=== PATIENT | female | born 1940 | race Caucasian/White ===

== ENCOUNTER 2019-09-07 23:42 | Inpatient (IN) | payer OTHER, SELFPAY ==
[~2019-09-07] VITALS: Ht 165.1 cm; Wt 96.2 kg
[~2019-09-07 23:42] MED LIST: CALC1TAB51 PO; COR6.25 PO; FURO40TA5 PO; LEVO100T PO; MULT PO; POTA20TA83 PO; VITA400C68 PO; WARF3TAB59 PO
[2019-09-07 23:49] VITALS: BP_SYST 114
[2019-09-08 01:03] LABS: EOSINOPHILS % (AUTO) 0.1 % (0.0-4.0); LYMPHOCYTES # (AUTO) 0.3 K/uL (1.0-5.5); NEUTROPHILS # (AUTO) 6.5 K/uL (1.8-7.7); WHITE BLOOD COUNT (AUTO) 7.4 K/uL (4.8-10.8)
[2019-09-08 01:10] LABS: BASOPHILS % (AUTO) 0.3 % (0.0-2.0); HEMOGLOBIN 7.1 g/dL (12.0-16.0); LYMPHOCYTES % (AUTO) 4.1 % (20.5-51.5); MEAN CORPUSCULAR HEMOGLOBIN 22 pg (27-31); MEAN CORPUSCULAR HGB CONC 31 % (32-36); MEAN CORPUSCULAR VOLUME 71 fL (79.0-98.0); MONOCYTES # (AUTO) 0.5 K/uL (0.0-1.0); MONOCYTES % (AUTO) 7.1 % (1.7-9.3); NEUTROPHILS % (AUTO) 88.4 % (40.0-70.0); PLATELET COUNT (AUTO) 256 K/uL (130-430); RED BLOOD CELL COUNT(AUTO) 3.27 MIL/uL (4.2-6.2); RED CELL DISTRIBUTION WIDTH 21.2 % (9.0-15.0)
[2019-09-08 01:21] LABS: ANION GAP 8 (5-15); CALCIUM 7.1 mg/dL (8.4-11.0); CHLORIDE 100 mmol/L (98-107); CREATININE 1.73 mg/dL (0.55-1.30); GLUCOSE 129 mg/dL (70-99); POTASSIUM 4.2 mmol/L (3.5-5.1); SODIUM SERUM 135 mmol/L (136-145); UREA NITROGEN, BLOOD 21 mg/dL (8-21)
[2019-09-08 01:22] LABS: INR 1.2 (0.8-1.2); PROTHROMBIN TIME 12.4 SECS (9.5-12.5)
[2019-09-08 01:34] LABS: ALANINE AMINOTRANSFERASE 23 U/L (12-78); ALBUMIN 2.5 g/dL (3.4-4.8); ASPARTATE AMINOTRANSFERASE 23 U/L (10-37); TOTAL BILIRUBIN 0.9 mg/dL (0.0-1.0)
[2019-09-08] MEDS ORDERED: DILT120C89 PO (02:13)
[2019-09-08] MEDS ORDERED: AMI200 PO (02:13)
[2019-09-08] MEDS ORDERED: APIX5TAB PO (02:13)
[2019-09-08] MEDS ORDERED: LORA10TA7 PO (02:13)
[2019-09-08] MEDS ORDERED: ACETAMINOPHEN 325 MG TABLET PO PRN (02:15)
[2019-09-08] MEDS ORDERED: ONDANSETRON HCL 4 MG/2 ML VIAL IVP PRN (02:15)
[2019-09-08] MEDS ORDERED: MORPHINE 2 MG/ML INJ. SYRINGE IVP PRN (02:15)
[2019-09-08] MEDS ORDERED: HYDROcodone/ACETAMIN 5-325 MG TAB (NORCO/ VICODIN) PO PRN (02:15)
[2019-09-08 03:11] VITALS: BP_SYST 122
[2019-09-08] MEDS: PANTOPRAZOLE SODIUM 40 MG/VIAL (PROTONIX) IVP SCH ×3 (03:47→21:29)
[2019-09-08 04:20] VITALS: BP_SYST 122
[2019-09-08] MEDS ORDERED: DIPHENHYDRAMINE INJ 50 MG/ML VIAL IVP PRN (05:00)
[2019-09-08 06:25] LABS: BASOPHILS % (AUTO) 0.3 % (0.0-2.0); EOSINOPHILS % (AUTO) 0.1 % (0.0-4.0); HEMATOCRIT 22.9 % (36-48); LYMPHOCYTES # (AUTO) 0.6 K/uL (1.0-5.5); LYMPHOCYTES % (AUTO) 7.8 % (20.5-51.5); MEAN CORPUSCULAR HEMOGLOBIN 21 pg (27-31); MEAN CORPUSCULAR HGB CONC 30 % (32-36); MEAN CORPUSCULAR VOLUME 71 fL (79.0-98.0); MONOCYTES # (AUTO) 0.6 K/uL (0.0-1.0); MONOCYTES % (AUTO) 8.9 % (1.7-9.3); NEUTROPHILS # (AUTO) 5.9 K/uL (1.8-7.7); NEUTROPHILS % (AUTO) 82.9 % (40.0-70.0); PLATELET COUNT (AUTO) 240 K/uL (130-430); RED BLOOD CELL COUNT(AUTO) 3.25 MIL/uL (4.2-6.2); RED CELL DISTRIBUTION WIDTH 21.3 % (9.0-15.0); WHITE BLOOD COUNT (AUTO) 7.1 K/uL (4.8-10.8)
[2019-09-08 06:50] LABS: HEMOGLOBIN 6.9 g/dL (12.0-16.0)
[2019-09-08 07:30] LABS: ALANINE AMINOTRANSFERASE 20 U/L (12-78); ALBUMIN 2.2 g/dL (3.4-4.8); ANION GAP 6 (5-15); ASPARTATE AMINOTRANSFERASE 24 U/L (10-37); CALCIUM 7.4 mg/dL (8.4-11.0); CHLORIDE 100 mmol/L (98-107); CREATININE 1.51 mg/dL (0.55-1.30); GLUCOSE 108 mg/dL (70-99); POTASSIUM 4.4 mmol/L (3.5-5.1); SODIUM SERUM 134 mmol/L (136-145); TOTAL BILIRUBIN 0.9 mg/dL (0.0-1.0); UREA NITROGEN, BLOOD 21 mg/dL (8-21)
[2019-09-08 08:01] VITALS: BP_SYST 128
[2019-09-08 08:27] LABS: CHOLESTEROL 81 mg/dL (<200); HDL CHOLESTEROL 36 mg/dL (>55); LDL CHOLESTEROL 44 mg/dL (<100); TRIGLYCERIDES 59 mg/dL (30-150)
[2019-09-08] MEDS ORDERED: AMIODARONE HCL 200 MG TABLET PO ONE (10:45)
[2019-09-08] MEDS ORDERED: DILTIAZEM HCL 120 MG CAP.SR.24H PO ONE (10:45)
[2019-09-08 12:13] VITALS: BP_SYST 106
[2019-09-08] MEDS: ALBUTEROL SULFATE 0.083% 2.5 MG/3 ML VIAL.NEB INH PRN (16:05)
[2019-09-08 16:20] VITALS: BP_SYST 110
[2019-09-08] MEDS ORDERED: BISACODYL 5 MG TABLET.DR (DULCOLAX) PO ONE (17:00)
[2019-09-08 17:39] LABS: BILIRUBIN,URINE 1+ (NEGATIVE); BLOOD, URINE NEGATIVE (NEGATIVE); CLARITY/URINE CLOUDY (CLEAR); COLOR,URINE YELLOW (YELLOW); GLUCOSE,URINE NEGATIVE (NEGATIVE); KETONES,URINE NEGATIVE (NEGATIVE); LEUKOCYTE ESTERASE ,URINE TRACE (NEGATIVE); NITRITE, URINE POSITIVE (NEGATIVE); PROTEIN URINE NEGATIVE (NEGATIVE)
[2019-09-08] MEDS ORDERED: GOLYTELY / COLYTE SOLUTION 4 LITERS PO ONE (18:00)
[2019-09-08 18:05] LABS: RBC,URINE NONE SEEN /HPF (0-3)
[2019-09-08 18:06] LABS: BACTERIA,URINE MANY /HPF (None Seen)
[2019-09-08 19:40] VITALS: BP_SYST 106
[2019-09-09 00:38] VITALS: BP_SYST 130
[2019-09-09 06:34] LABS: ALANINE AMINOTRANSFERASE 19 U/L (12-78); ALBUMIN 2.2 g/dL (3.4-4.8); ANION GAP 8 (5-15); ASPARTATE AMINOTRANSFERASE 28 U/L (10-37); CALCIUM 7.5 mg/dL (8.4-11.0); CHLORIDE 96 mmol/L (98-107); CREATININE 1.22 mg/dL (0.55-1.30); GLUCOSE 124 mg/dL (70-99); POTASSIUM 3.2 mmol/L (3.5-5.1); SODIUM SERUM 131 mmol/L (136-145); TOTAL BILIRUBIN 1.3 mg/dL (0.0-1.0); UREA NITROGEN, BLOOD 18 mg/dL (8-21)
[2019-09-09 06:57] LABS: BASOPHILS % (AUTO) 0.3 % (0.0-2.0); HEMATOCRIT 29.6 % (36-48); HEMOGLOBIN 9.1 g/dL (12.0-16.0); LYMPHOCYTES # (AUTO) 0.3 K/uL (1.0-5.5); LYMPHOCYTES % (AUTO) 2.6 % (20.5-51.5); MEAN CORPUSCULAR HEMOGLOBIN 21 pg (27-31); MEAN CORPUSCULAR HGB CONC 31 % (32-36); MEAN CORPUSCULAR VOLUME 69 fL (79.0-98.0); MONOCYTES # (AUTO) 0.5 K/uL (0.0-1.0); MONOCYTES % (AUTO) 5.2 % (1.7-9.3); NEUTROPHILS # (AUTO) 9.7 K/uL (1.8-7.7); NEUTROPHILS % (AUTO) 91.9 % (40.0-70.0); PLATELET COUNT (AUTO) 228 K/uL (130-430); RED BLOOD CELL COUNT(AUTO) 4.28 MIL/uL (4.2-6.2); RED CELL DISTRIBUTION WIDTH 24.7 % (9.0-15.0)
[2019-09-09 07:04] LABS: WHITE BLOOD COUNT (AUTO) 10.5 K/uL (4.8-10.8)
[2019-09-09 08:00] VITALS: BP_SYST 108
[2019-09-09] MEDS: ALBUTEROL SULFATE 0.083% 2.5 MG/3 ML VIAL.NEB INH PRN (08:17)
[2019-09-09] MEDS: PANTOPRAZOLE SODIUM 40 MG/VIAL (PROTONIX) IVP SCH ×2 (09:21→20:19)
[2019-09-09] MEDS: DILTIAZEM HCL 120 MG CAP.SR.24H PO SCH (09:24)
[2019-09-09] MEDS: AMIODARONE HCL 200 MG TABLET PO SCH (09:26)
[2019-09-09] MEDS ORDERED: POTASSIUM CHLORIDE 20 MEQ TAB.PRT.SR PO ONE (10:30)
[2019-09-09] MEDS: IPRATROPIUM BROM 0.5 MG/2.5 ML VIAL.NEB (ATROVENT) INH SCH ×3 (11:55→19:43)
[2019-09-09] MEDS: ALBUTEROL SULFATE 0.083% 2.5 MG/3 ML VIAL.NEB INH SCH ×3 (11:55→19:43)
[2019-09-09 12:31] VITALS: BP_SYST 107
[2019-09-09] MEDS ORDERED: DIATR MEGLU/DIATRIZ SOD 30 ML SOLUTION PO ONE (13:45)
[2019-09-09 16:33] VITALS: BP_SYST 112
[2019-09-09 20:00] VITALS: BP_SYST 117
[2019-09-10 00:30] VITALS: BP_SYST 110
[2019-09-10] MEDS: ALBUTEROL SULFATE 0.083% 2.5 MG/3 ML VIAL.NEB INH SCH ×4 (07:59→23:00)
[2019-09-10] MEDS: IPRATROPIUM BROM 0.5 MG/2.5 ML VIAL.NEB (ATROVENT) INH SCH ×4 (07:59→23:00)
[2019-09-10 08:00] VITALS: BP_SYST 122
[2019-09-10] MEDS: PANTOPRAZOLE SODIUM 40 MG/VIAL (PROTONIX) IVP SCH ×2 (08:56→20:59)
[2019-09-10] MEDS: DILTIAZEM HCL 120 MG CAP.SR.24H PO SCH (08:56)
[2019-09-10] MEDS: AMIODARONE HCL 200 MG TABLET PO SCH (08:58)
[2019-09-10] MEDS ORDERED: PIPERACILLIN/TAZO 3.375/DEX-IS 50 ML IV ONE (11:00)
[2019-09-10 11:30] LABS: BASOPHILS % (AUTO) 0.3 % (0.0-2.0); EOSINOPHILS % (AUTO) 0.1 % (0.0-4.0); HEMATOCRIT 26.3 % (36-48); HEMOGLOBIN 8.1 g/dL (12.0-16.0); LYMPHOCYTES # (AUTO) 0.4 K/uL (1.0-5.5); LYMPHOCYTES % (AUTO) 4.4 % (20.5-51.5); MEAN CORPUSCULAR HEMOGLOBIN 22 pg (27-31); MEAN CORPUSCULAR HGB CONC 31 % (32-36); MEAN CORPUSCULAR VOLUME 70 fL (79.0-98.0); MONOCYTES # (AUTO) 0.5 K/uL (0.0-1.0); MONOCYTES % (AUTO) 5.2 % (1.7-9.3); PLATELET COUNT (AUTO) 202 K/uL (130-430); RED BLOOD CELL COUNT(AUTO) 3.75 MIL/uL (4.2-6.2); RED CELL DISTRIBUTION WIDTH 24.8 % (9.0-15.0); WHITE BLOOD COUNT (AUTO) 8.9 K/uL (4.8-10.8)
[2019-09-10] MEDS ORDERED: IOHEXOL 350 mgI/mL, 150 ML INFUS..BTL IV ONE (11:31)
[2019-09-10 12:21] VITALS: BP_SYST 103
[2019-09-10 16:00] VITALS: BP_SYST 109
[2019-09-10] MEDS: PIPERACILLIN/TAZO 3.375/DEX-IS 50 ML IV SCH (17:30)
[2019-09-10 21:16] VITALS: BP_SYST 98
[2019-09-11] MEDS: PIPERACILLIN/TAZO 3.375/DEX-IS 50 ML IV SCH ×3 (00:11→11:56)
[2019-09-11 01:15] VITALS: BP_SYST 104
[2019-09-11] MEDS: ALBUTEROL SULFATE 0.083% 2.5 MG/3 ML VIAL.NEB INH SCH ×3 (03:00→19:19)
[2019-09-11] MEDS: IPRATROPIUM BROM 0.5 MG/2.5 ML VIAL.NEB (ATROVENT) INH SCH ×3 (03:05→19:20)
[2019-09-11 07:20] VITALS: BP_SYST 102
[2019-09-11 07:47] LABS: BASOPHILS % (AUTO) 0.1 % (0.0-2.0); EOSINOPHILS % (AUTO) 0.2 % (0.0-4.0); HEMATOCRIT 28.4 % (36-48); HEMOGLOBIN 8.7 g/dL (12.0-16.0); LYMPHOCYTES # (AUTO) 0.3 K/uL (1.0-5.5); LYMPHOCYTES % (AUTO) 3.7 % (20.5-51.5); MEAN CORPUSCULAR HEMOGLOBIN 22 pg (27-31); MEAN CORPUSCULAR HGB CONC 31 % (32-36); MEAN CORPUSCULAR VOLUME 71 fL (79.0-98.0); MONOCYTES # (AUTO) 0.4 K/uL (0.0-1.0); MONOCYTES % (AUTO) 5.4 % (1.7-9.3); NEUTROPHILS # (AUTO) 7.3 K/uL (1.8-7.7); NEUTROPHILS % (AUTO) 90.6 % (40.0-70.0); PLATELET COUNT (AUTO) 196 K/uL (130-430); RED BLOOD CELL COUNT(AUTO) 4.01 MIL/uL (4.2-6.2); RED CELL DISTRIBUTION WIDTH 24.9 % (9.0-15.0)
[2019-09-11 08:00] VITALS: BP_SYST 102
[2019-09-11] MEDS: DILTIAZEM HCL 120 MG CAP.SR.24H PO SCH (09:28)
[2019-09-11] MEDS: PANTOPRAZOLE SODIUM 40 MG/VIAL (PROTONIX) IVP SCH ×2 (09:28→20:22)
[2019-09-11] MEDS: AMIODARONE HCL 200 MG TABLET PO SCH (09:29)
[2019-09-11] MEDS ORDERED: FUROSEMIDE 20 MG/2 ML VIAL IVP ONE (09:30)
[2019-09-11 12:00] VITALS: BP_SYST 110
[2019-09-11] MEDS: cefTRIAXone 1 GM in D5W 50 ML IV SCH (15:37)
[2019-09-11 16:00] VITALS: BP_SYST 100
[2019-09-11 20:10] VITALS: BP_SYST 111
[2019-09-12 00:12] VITALS: BP_SYST 101
[2019-09-12] MEDS: ALBUTEROL SULFATE 0.083% 2.5 MG/3 ML VIAL.NEB INH SCH ×5 (07:40→23:00)
[2019-09-12] MEDS: IPRATROPIUM BROM 0.5 MG/2.5 ML VIAL.NEB (ATROVENT) INH SCH ×4 (07:40→20:23)
[2019-09-12] MEDS: ALBUTEROL SULFATE 0.083% 2.5 MG/3 ML VIAL.NEB INH PRN (08:34)
[2019-09-12] MEDS: IPRATROPIUM BROM 0.5 MG/2.5 ML VIAL.NEB (ATROVENT) INH PRN (08:34)
[2019-09-12] MEDS: PANTOPRAZOLE SODIUM 40 MG/VIAL (PROTONIX) IVP SCH ×2 (09:23→21:43)
[2019-09-12] MEDS: DILTIAZEM HCL 120 MG CAP.SR.24H PO SCH (09:24)
[2019-09-12 09:25] VITALS: BP_SYST 114
[2019-09-12] MEDS: AMIODARONE HCL 200 MG TABLET PO SCH (09:25)
[2019-09-12 12:39] VITALS: BP_SYST 104
[2019-09-12] MEDS: cefTRIAXone 1 GM in D5W 50 ML IV SCH (14:54)
[2019-09-12 16:49] VITALS: BP_SYST 100
[2019-09-12 19:50] VITALS: BP_SYST 97
[2019-09-13 00:05] VITALS: BP_SYST 103
[2019-09-13] MEDS: IPRATROPIUM BROM 0.5 MG/2.5 ML VIAL.NEB (ATROVENT) INH SCH ×6 (03:00→23:00)
[2019-09-13] MEDS: ALBUTEROL SULFATE 0.083% 2.5 MG/3 ML VIAL.NEB INH SCH ×6 (03:00→23:00)
[2019-09-13 06:17] LABS: BASOPHILS % (AUTO) 0.2 % (0.0-2.0); EOSINOPHILS % (AUTO) 0.5 % (0.0-4.0); LYMPHOCYTES # (AUTO) 0.3 K/uL (1.0-5.5); LYMPHOCYTES % (AUTO) 3.5 % (20.5-51.5); MEAN CORPUSCULAR HEMOGLOBIN 22 pg (27-31); MEAN CORPUSCULAR HGB CONC 30 % (32-36); MEAN CORPUSCULAR VOLUME 72 fL (79.0-98.0); MONOCYTES # (AUTO) 0.4 K/uL (0.0-1.0); MONOCYTES % (AUTO) 4.9 % (1.7-9.3); NEUTROPHILS # (AUTO) 6.7 K/uL (1.8-7.7); NEUTROPHILS % (AUTO) 90.9 % (40.0-70.0); PLATELET COUNT (AUTO) 188 K/uL (130-430); RED BLOOD CELL COUNT(AUTO) 4.14 MIL/uL (4.2-6.2); RED CELL DISTRIBUTION WIDTH 26.6 % (9.0-15.0); WHITE BLOOD COUNT (AUTO) 7.3 K/uL (4.8-10.8)
[2019-09-13 06:26] LABS: ALANINE AMINOTRANSFERASE 26 U/L (12-78); ALBUMIN 1.9 g/dL (3.4-4.8); ANION GAP 6 (5-15); ASPARTATE AMINOTRANSFERASE 53 U/L (10-37); CALCIUM 7.8 mg/dL (8.4-11.0); CHLORIDE 104 mmol/L (98-107); CREATININE 1.36 mg/dL (0.55-1.30); GLUCOSE 127 mg/dL (70-99); POTASSIUM 3.4 mmol/L (3.5-5.1); SODIUM SERUM 140 mmol/L (136-145); TOTAL BILIRUBIN 0.8 mg/dL (0.0-1.0); UREA NITROGEN, BLOOD 47 mg/dL (8-21)
[2019-09-13 08:21] VITALS: BP_SYST 96
[2019-09-13] MEDS ORDERED: metroNIDAZOLE 500 mg/NS 100 ML IV ONE (08:30)
[2019-09-13] MEDS: PANTOPRAZOLE SODIUM 40 MG/VIAL (PROTONIX) IVP SCH ×2 (09:27→21:54)
[2019-09-13] MEDS: AMIODARONE HCL 200 MG TABLET PO SCH (09:35)
[2019-09-13] MEDS: DILTIAZEM HCL 120 MG CAP.SR.24H PO SCH (09:35)
[2019-09-13 12:24] VITALS: BP_SYST 106
[2019-09-13] MEDS ORDERED: metroNIDAZOLE 500 mg/NS 100 ML IV SCH (14:00)
[2019-09-13] MEDS: cefTRIAXone 1 GM in D5W 50 ML IV SCH (14:31)
[2019-09-13] MEDS: metroNIDAZOLE 500 mg/NS 100 ML IV SCH ×2 (14:31→23:11)
[2019-09-13 16:29] VITALS: BP_SYST 101
[2019-09-13 20:00] VITALS: BP_SYST 100
[2019-09-13 23:32] VITALS: BP_SYST 117
[2019-09-14] MEDS: IPRATROPIUM BROM 0.5 MG/2.5 ML VIAL.NEB (ATROVENT) INH SCH ×6 (03:00→23:00)
[2019-09-14] MEDS: ALBUTEROL SULFATE 0.083% 2.5 MG/3 ML VIAL.NEB INH SCH ×6 (03:00→23:00)
[2019-09-14] MEDS: PANTOPRAZOLE SODIUM 40 MG/VIAL (PROTONIX) IVP SCH ×2 (08:54→21:11)
[2019-09-14] MEDS: metroNIDAZOLE 500 mg/NS 100 ML IV SCH ×3 (08:55→23:10)
[2019-09-14] MEDS: AMIODARONE HCL 200 MG TABLET PO SCH (08:55)
[2019-09-14] MEDS: DILTIAZEM HCL 120 MG CAP.SR.24H PO SCH (08:55)
[2019-09-14 12:17] VITALS: BP_SYST 102
[2019-09-14] MEDS: cefTRIAXone 1 GM in D5W 50 ML IV SCH (14:25)
[2019-09-14 16:29] VITALS: BP_SYST 114
[2019-09-14 20:00] VITALS: BP_SYST 106
[2019-09-14 23:20] VITALS: BP_SYST 116
[2019-09-15] MEDS: ALBUTEROL SULFATE 0.083% 2.5 MG/3 ML VIAL.NEB INH SCH ×6 (03:00→23:40)
[2019-09-15] MEDS: IPRATROPIUM BROM 0.5 MG/2.5 ML VIAL.NEB (ATROVENT) INH SCH ×6 (03:00→23:40)
[2019-09-15 08:00] VITALS: BP_SYST 121
[2019-09-15] MEDS: metroNIDAZOLE 500 mg/NS 100 ML IV SCH ×3 (08:05→23:14)
[2019-09-15] MEDS: PANTOPRAZOLE SODIUM 40 MG/VIAL (PROTONIX) IVP SCH ×2 (08:06→20:14)
[2019-09-15] MEDS: DILTIAZEM HCL 120 MG CAP.SR.24H PO SCH (08:10)
[2019-09-15] MEDS: AMIODARONE HCL 200 MG TABLET PO SCH (08:10)
[2019-09-15 08:43] VITALS: BP_SYST 116
[2019-09-15] MEDS: D5NS 1,000 ML IV SCH (10:36)
[2019-09-15 13:18] VITALS: BP_SYST 105
[2019-09-15] MEDS: cefTRIAXone 1 GM in D5W 50 ML IV SCH (14:13)
[2019-09-15 17:04] VITALS: BP_SYST 105
[2019-09-15 20:00] VITALS: BP_SYST 107
[2019-09-16] MEDS: IPRATROPIUM BROM 0.5 MG/2.5 ML VIAL.NEB (ATROVENT) INH SCH ×6 (03:00→22:55)
[2019-09-16] MEDS: ALBUTEROL SULFATE 0.083% 2.5 MG/3 ML VIAL.NEB INH SCH ×6 (03:00→22:55)
[2019-09-16] MEDS: D5NS 1,000 ML IV SCH ×2 (03:17→21:33)
[2019-09-16 08:00] VITALS: BP_SYST 110
[2019-09-16] MEDS: PANTOPRAZOLE SODIUM 40 MG/VIAL (PROTONIX) IVP SCH ×2 (08:58→21:25)
[2019-09-16] MEDS: AMIODARONE HCL 200 MG TABLET PO SCH (08:58)
[2019-09-16] MEDS: metroNIDAZOLE 500 mg/NS 100 ML IV SCH ×2 (08:58→17:15)
[2019-09-16] MEDS: DILTIAZEM HCL 120 MG CAP.SR.24H PO SCH (08:59)
[2019-09-16 11:51] LABS: HEMATOCRIT 32.6 % (36-48); LYMPHOCYTES % (AUTO) 4.9 % (20.5-51.5); MEAN CORPUSCULAR HEMOGLOBIN 22 pg (27-31); MEAN CORPUSCULAR HGB CONC 29 % (32-36); MEAN CORPUSCULAR VOLUME 76 fL (79.0-98.0); MONOCYTES % (AUTO) 6.8 % (1.7-9.3); NEUTROPHILS % (AUTO) 87.3 % (40.0-70.0); PLATELET COUNT (AUTO) 167 K/uL (130-430); RED BLOOD CELL COUNT(AUTO) 4.32 MIL/uL (4.2-6.2); RED CELL DISTRIBUTION WIDTH 28.4 % (9.0-15.0); WHITE BLOOD COUNT (AUTO) 6.5 K/uL (4.8-10.8)
[2019-09-16 11:52] LABS: ANION GAP 7 (5-15); BASOPHILS % (AUTO) 0.4 % (0.0-2.0); CALCIUM 7.6 mg/dL (8.4-11.0); CREATININE 1.44 mg/dL (0.55-1.30); EOSINOPHILS % (AUTO) 0.6 % (0.0-4.0); GLUCOSE 149 mg/dL (70-99); HEMOGLOBIN 9.4 g/dL (12.0-16.0); LYMPHOCYTES # (AUTO) 0.3 K/uL (1.0-5.5); MONOCYTES # (AUTO) 0.4 K/uL (0.0-1.0); NEUTROPHILS # (AUTO) 5.7 K/uL (1.8-7.7); POTASSIUM 3.7 mmol/L (3.5-5.1); SODIUM SERUM 159 mmol/L (136-145); UREA NITROGEN, BLOOD 54 mg/dL (8-21)
[2019-09-16 11:54] LABS: ALANINE AMINOTRANSFERASE 27 U/L (12-78); ASPARTATE AMINOTRANSFERASE 48 U/L (10-37); TOTAL BILIRUBIN 1.1 mg/dL (0.0-1.0)
[2019-09-16 12:08] LABS: CHLORIDE 122 mmol/L (98-107)
[2019-09-16 12:43] VITALS: BP_SYST 106
[2019-09-16] MEDS: cefTRIAXone 1 GM in D5W 50 ML IV SCH (15:20)
[2019-09-16 17:04] VITALS: BP_SYST 105
[2019-09-16 19:40] VITALS: BP_SYST 96
[2019-09-16 23:45] VITALS: BP_SYST 103
[2019-09-17] MEDS: metroNIDAZOLE 500 mg/NS 100 ML IV SCH ×4 (00:47→23:08)
[2019-09-17] MEDS: ALBUTEROL SULFATE 0.083% 2.5 MG/3 ML VIAL.NEB INH SCH ×4 (07:16→20:07)
[2019-09-17] MEDS: IPRATROPIUM BROM 0.5 MG/2.5 ML VIAL.NEB (ATROVENT) INH SCH ×4 (07:16→20:07)
[2019-09-17 07:53] LABS: INR 1.6 (0.8-1.2); PROTHROMBIN TIME 15.8 SECS (9.5-12.5)
[2019-09-17] MEDS: PANTOPRAZOLE SODIUM 40 MG/VIAL (PROTONIX) IVP SCH ×2 (08:34→21:06)
[2019-09-17] MEDS: AMIODARONE HCL 200 MG TABLET PO SCH (08:35)
[2019-09-17] MEDS: DILTIAZEM HCL 120 MG CAP.SR.24H PO SCH ×2 (08:36→21:06)
[2019-09-17] MEDS ORDERED: fentaNYL CITRATE/PF 100 MCG/2 ML AMP ONE (10:05)
[2019-09-17] MEDS ORDERED: MIDAZOLAM HCL 5 MG/5 ML VIAL ONE (10:06)
[2019-09-17 10:45] VITALS: BP_SYST 108
[2019-09-17 10:51] LABS: BASOPHILS % (AUTO) 0.2 % (0.0-2.0); EOSINOPHILS # (AUTO) 0.1 K/uL (0.0-0.4); HEMATOCRIT 34.1 % (36-48); HEMOGLOBIN 9.6 g/dL (12.0-16.0); LYMPHOCYTES # (AUTO) 0.5 K/uL (1.0-5.5); LYMPHOCYTES % (AUTO) 6.7 % (20.5-51.5); MEAN CORPUSCULAR HEMOGLOBIN 22 pg (27-31); MEAN CORPUSCULAR HGB CONC 28 % (32-36); MEAN CORPUSCULAR VOLUME 77 fL (79.0-98.0); MONOCYTES # (AUTO) 0.4 K/uL (0.0-1.0); MONOCYTES % (AUTO) 6.4 % (1.7-9.3); NEUTROPHILS % (AUTO) 85.7 % (40.0-70.0); PLATELET COUNT (AUTO) 134 K/uL (130-430); RED BLOOD CELL COUNT(AUTO) 4.41 MIL/uL (4.2-6.2); RED CELL DISTRIBUTION WIDTH 29.4 % (9.0-15.0)
[2019-09-17 11:07] LABS: ALANINE AMINOTRANSFERASE 30 U/L (12-78); ANION GAP 6 (5-15); ASPARTATE AMINOTRANSFERASE 49 U/L (10-37); CALCIUM 7.2 mg/dL (8.4-11.0); CREATININE 1.78 mg/dL (0.55-1.30); GLUCOSE 142 mg/dL (70-99); POTASSIUM 3.7 mmol/L (3.5-5.1); UREA NITROGEN, BLOOD 57 mg/dL (8-21)
[2019-09-17 11:10] LABS: CHLORIDE 127 mmol/L (98-107); SODIUM SERUM 165 mmol/L (136-145)
[2019-09-17] MEDS: D5W 1,000 ML IV SCH ×2 (13:00→18:47)
[2019-09-17 14:00] VITALS: BP_SYST 101
[2019-09-17] MEDS: cefTRIAXone 1 GM in D5W 50 ML IV SCH (15:25)
[2019-09-17 16:46] VITALS: BP_SYST 102
[2019-09-17 19:35] VITALS: BP_SYST 108
[2019-09-18] VITALS (16 sets, daily range): BP systolic 72–109
[2019-09-18] MEDS: IPRATROPIUM BROM 0.5 MG/2.5 ML VIAL.NEB (ATROVENT) INH PRN (01:14)
[2019-09-18] MEDS: ALBUTEROL SULFATE 0.083% 2.5 MG/3 ML VIAL.NEB INH PRN (01:14)
[2019-09-18] MEDS ORDERED: DIGOXIN 0.5 MG/2 ML AMP IVP ONE (05:45)
[2019-09-18 06:15] LABS: ANION GAP 4 (5-15); CALCIUM 7.1 mg/dL (8.4-11.0); CREATININE 2.27 mg/dL (0.55-1.30); GLUCOSE 186 mg/dL (70-99); UREA NITROGEN, BLOOD 68 mg/dL (8-21)
[2019-09-18 06:16] LABS: ALANINE AMINOTRANSFERASE 29 U/L (12-78); ALBUMIN 1.8 g/dL (3.4-4.8); ASPARTATE AMINOTRANSFERASE 42 U/L (10-37); TOTAL BILIRUBIN 0.8 mg/dL (0.0-1.0)
[2019-09-18 06:23] LABS: BASOPHILS % (AUTO) 0.3 % (0.0-2.0); EOSINOPHILS % (AUTO) 0.2 % (0.0-4.0); HEMATOCRIT 32.5 % (36-48); HEMOGLOBIN 9.4 g/dL (12.0-16.0); LYMPHOCYTES # (AUTO) 0.5 K/uL (1.0-5.5); LYMPHOCYTES % (AUTO) 5.3 % (20.5-51.5); MEAN CORPUSCULAR HEMOGLOBIN 22 pg (27-31); MEAN CORPUSCULAR HGB CONC 29 % (32-36); MEAN CORPUSCULAR VOLUME 76 fL (79.0-98.0); MONOCYTES # (AUTO) 0.5 K/uL (0.0-1.0); MONOCYTES % (AUTO) 5.2 % (1.7-9.3); NEUTROPHILS # (AUTO) 8.4 K/uL (1.8-7.7); PLATELET COUNT (AUTO) 121 K/uL (130-430); RED BLOOD CELL COUNT(AUTO) 4.27 MIL/uL (4.2-6.2); RED CELL DISTRIBUTION WIDTH 29.1 % (9.0-15.0); WHITE BLOOD COUNT (AUTO) 9.4 K/uL (4.8-10.8)
[2019-09-18 06:41] LABS: CHLORIDE 127 mmol/L (98-107); SODIUM SERUM 162 mmol/L (136-145)
[2019-09-18] MEDS: IPRATROPIUM BROM 0.5 MG/2.5 ML VIAL.NEB (ATROVENT) INH SCH ×5 (07:57→23:00)
[2019-09-18] MEDS: ALBUTEROL SULFATE 0.083% 2.5 MG/3 ML VIAL.NEB INH SCH ×5 (07:57→23:00)
[2019-09-18] MEDS ORDERED: DILTIAZEM HCL 25 MG/5 ML VIAL IVP PRN (08:45)
[2019-09-18] MEDS: DILTIAZEM HCL 120 MG CAP.SR.24H PO SCH ×2 (09:00→21:00)
[2019-09-18] MEDS: metroNIDAZOLE 500 mg/NS 100 ML IV SCH ×2 (09:10→16:33)
[2019-09-18] MEDS: D5W 1,000 ML IV SCH ×2 (09:10→19:15)
[2019-09-18] MEDS: PANTOPRAZOLE SODIUM 40 MG/VIAL (PROTONIX) IVP SCH ×2 (09:11→21:54)
[2019-09-18] MEDS ORDERED: 0.45% NACL 500 ML IV ONE (13:00)
[2019-09-18 14:01] LABS: FREE T4 (FREE THYROXINE) 1.4 ng/dl (0.8-1.5); THYROID STIMULATING HORMONE 1.37 uIu/mL (0.36-3.74)
[2019-09-18] MEDS: cefTRIAXone 1 GM in D5W 50 ML IV SCH (15:11)
[2019-09-18] MEDS ORDERED: NS 500 ML IV ONE (15:45)
[2019-09-18] MEDS ORDERED: NOREPINEPHRINE BITARTRATE 4 MG in NS 246 ML IV PRN (17:15)
[2019-09-18] MEDS: NOREPINEPHRINE BITARTRATE 4 MG in D5W 250 ML IV PRN (17:55)
[2019-09-19] VITALS (24 sets, daily range): BP systolic 91–124
[2019-09-19] MEDS: metroNIDAZOLE 500 mg/NS 100 ML IV SCH ×3 (00:51→16:23)
[2019-09-19] MEDS: IPRATROPIUM BROM 0.5 MG/2.5 ML VIAL.NEB (ATROVENT) INH SCH ×4 (03:00→23:00)
[2019-09-19] MEDS: ALBUTEROL SULFATE 0.083% 2.5 MG/3 ML VIAL.NEB INH SCH ×4 (03:00→23:00)
[2019-09-19] MEDS ORDERED: NOREPINEPHRINE 4 MG/4 ML VIAL IV ONE ×2 (03:39→22:54)
[2019-09-19] MEDS: D5W 1,000 ML IV SCH ×3 (04:56→20:55)
[2019-09-19 06:50] LABS: ANION GAP 7 (5-15); CALCIUM 7.1 mg/dL (8.4-11.0); CREATININE 2.34 mg/dL (0.55-1.30); GLUCOSE 193 mg/dL (70-99); POTASSIUM 4.2 mmol/L (3.5-5.1); SODIUM SERUM 156 mmol/L (136-145); UREA NITROGEN, BLOOD 75 mg/dL (8-21)
[2019-09-19 07:14] LABS: CHLORIDE 122 mmol/L (98-107)
[2019-09-19 07:21] LABS: EOSINOPHILS # (AUTO) 0.1 K/uL (0.0-0.4); HEMOGLOBIN 9.4 g/dL (12.0-16.0); MONOCYTES # (AUTO) 0.5 K/uL (0.0-1.0)
[2019-09-19 07:29] LABS: BASOPHILS % (AUTO) 0.3 % (0.0-2.0); EOSINOPHILS % (AUTO) 0.6 % (0.0-4.0); HEMATOCRIT 32.6 % (36-48); LYMPHOCYTES # (AUTO) 0.8 K/uL (1.0-5.5); MEAN CORPUSCULAR HEMOGLOBIN 22 pg (27-31); MEAN CORPUSCULAR HGB CONC 29 % (32-36); MEAN CORPUSCULAR VOLUME 76 fL (79.0-98.0); MONOCYTES % (AUTO) 3.9 % (1.7-9.3); NEUTROPHILS # (AUTO) 12.3 K/uL (1.8-7.7); NEUTROPHILS % (AUTO) 89.2 % (40.0-70.0); RED BLOOD CELL COUNT(AUTO) 4.31 MIL/uL (4.2-6.2); WHITE BLOOD COUNT (AUTO) 13.8 K/uL (4.8-10.8)
[2019-09-19 08:25] LABS: RED CELL DISTRIBUTION WIDTH 28.6 % (9.0-15.0)
[2019-09-19 08:50] LABS: PLATELET COUNT (AUTO) 80 K/uL (130-430)
[2019-09-19] MEDS: PANTOPRAZOLE SODIUM 40 MG/VIAL (PROTONIX) IVP SCH ×2 (09:21→21:17)
[2019-09-19] MEDS: DILTIAZEM HCL 120 MG CAP.SR.24H PO SCH ×2 (09:22→21:00)
[2019-09-19] MEDS: NOREPINEPHRINE BITARTRATE 4 MG in D5W 250 ML IV PRN ×2 (12:03→22:56)
[2019-09-19] MEDS: cefTRIAXone 1 GM in D5W 50 ML IV SCH (16:23)
[2019-09-19] MEDS: METOCLOPRAMIDE HCL 10 MG/2 ML VIAL IVP SCH (21:18)
[2019-09-20] VITALS (24 sets, daily range): BP systolic 89–124
[2019-09-20] MEDS: metroNIDAZOLE 500 mg/NS 100 ML IV SCH (00:12)
[2019-09-20] MEDS: D5W 1,000 ML IV SCH (06:41)
[2019-09-20] MEDS: METOCLOPRAMIDE HCL 10 MG/2 ML VIAL IVP SCH ×3 (06:42→22:12)
[2019-09-20] MEDS: NOREPINEPHRINE BITARTRATE 4 MG in D5W 250 ML IV PRN ×3 (06:53→23:46)
[2019-09-20] MEDS ORDERED: NOREPINEPHRINE 4 MG/4 ML VIAL IV ONE (07:05)
[2019-09-20] MEDS: ALBUTEROL SULFATE 0.083% 2.5 MG/3 ML VIAL.NEB INH SCH ×5 (07:17→23:00)
[2019-09-20] MEDS: IPRATROPIUM BROM 0.5 MG/2.5 ML VIAL.NEB (ATROVENT) INH SCH ×5 (07:17→23:00)
[2019-09-20 08:14] LABS: ALANINE AMINOTRANSFERASE 19 U/L (12-78); ALBUMIN 1.7 g/dL (3.4-4.8); ANION GAP 8 (5-15); ASPARTATE AMINOTRANSFERASE 33 U/L (10-37); CHLORIDE 109 mmol/L (98-107); CREATININE 1.99 mg/dL (0.55-1.30); GLUCOSE 289 mg/dL (70-99); PHOSPHORUS 2.7 mg/dL (2.7-4.5); POTASSIUM 3.5 mmol/L (3.5-5.1); SODIUM SERUM 142 mmol/L (136-145); TOTAL BILIRUBIN 0.6 mg/dL (0.0-1.0); UREA NITROGEN, BLOOD 68 mg/dL (8-21)
[2019-09-20 08:23] LABS: CALCIUM 6.8 mg/dL (8.4-11.0)
[2019-09-20 08:32] LABS: BASOPHILS % (AUTO) 0.2 % (0.0-2.0); EOSINOPHILS # (AUTO) 0.2 K/uL (0.0-0.4); EOSINOPHILS % (AUTO) 1.7 % (0.0-4.0); HEMATOCRIT 29.4 % (36-48); HEMOGLOBIN 8.4 g/dL (12.0-16.0); LYMPHOCYTES # (AUTO) 0.6 K/uL (1.0-5.5); LYMPHOCYTES % (AUTO) 5.4 % (20.5-51.5); MEAN CORPUSCULAR HEMOGLOBIN 22 pg (27-31); MEAN CORPUSCULAR HGB CONC 29 % (32-36); MEAN CORPUSCULAR VOLUME 77 fL (79.0-98.0); MONOCYTES # (AUTO) 0.4 K/uL (0.0-1.0); MONOCYTES % (AUTO) 3.3 % (1.7-9.3); NEUTROPHILS # (AUTO) 10.3 K/uL (1.8-7.7); NEUTROPHILS % (AUTO) 89.4 % (40.0-70.0); RED BLOOD CELL COUNT(AUTO) 3.81 MIL/uL (4.2-6.2); RED CELL DISTRIBUTION WIDTH 29.4 % (9.0-15.0); WHITE BLOOD COUNT (AUTO) 11.5 K/uL (4.8-10.8)
[2019-09-20] MEDS ORDERED: CALCIUM CHLORIDE 1 GM in NS 100 ML IV ONE (08:45)
[2019-09-20] MEDS: DILTIAZEM HCL 120 MG CAP.SR.24H PO SCH ×2 (09:00→21:00)
[2019-09-20] MEDS: PANTOPRAZOLE SODIUM 40 MG/VIAL (PROTONIX) IVP SCH ×2 (09:39→22:12)
[2019-09-20 11:30] LABS: PLATELET COUNT (AUTO) 50 K/uL (130-430)
[2019-09-20 11:31] LABS: ERYTHROCYTE SEDIMENTATION RATE 16 MM/HR (0-20)
[2019-09-20] MEDS: cefTRIAXone 1 GM in D5W 50 ML IV SCH (14:15)
[2019-09-21] VITALS (25 sets, daily range): BP systolic 96–165
[2019-09-21] MEDS: ALBUTEROL SULFATE 0.083% 2.5 MG/3 ML VIAL.NEB INH SCH ×5 (03:00→19:00)
[2019-09-21] MEDS: IPRATROPIUM BROM 0.5 MG/2.5 ML VIAL.NEB (ATROVENT) INH SCH ×5 (03:00→19:00)
[2019-09-21 05:53] LABS: BASOPHILS # (AUTO) 0.1 K/uL (0.0-0.2); BASOPHILS % (AUTO) 0.6 % (0.0-2.0); EOSINOPHILS # (AUTO) 0.3 K/uL (0.0-0.4); HEMATOCRIT 28.7 % (36-48); HEMOGLOBIN 8.3 g/dL (12.0-16.0); LYMPHOCYTES # (AUTO) 0.5 K/uL (1.0-5.5); LYMPHOCYTES % (AUTO) 5.4 % (20.5-51.5); MEAN CORPUSCULAR HEMOGLOBIN 22 pg (27-31); MEAN CORPUSCULAR HGB CONC 29 % (32-36); MEAN CORPUSCULAR VOLUME 77 fL (79.0-98.0); MONOCYTES # (AUTO) 0.3 K/uL (0.0-1.0); NEUTROPHILS # (AUTO) 7.5 K/uL (1.8-7.7); PLATELET COUNT (AUTO) 60 K/uL (130-430); RED CELL DISTRIBUTION WIDTH 28.9 % (9.0-15.0)
[2019-09-21] MEDS: METOCLOPRAMIDE HCL 10 MG/2 ML VIAL IVP SCH ×3 (06:04→21:33)
[2019-09-21 06:12] LABS: WHITE BLOOD COUNT (AUTO) 8.6 K/uL (4.8-10.8)
[2019-09-21 06:16] LABS: ALANINE AMINOTRANSFERASE 18 U/L (12-78); ALBUMIN 1.5 g/dL (3.4-4.8); ANION GAP 6 (5-15); ASPARTATE AMINOTRANSFERASE 27 U/L (10-37); C-REACTIVE PROTEIN QUANT 6.5 mg/dL (0-0.5); CHLORIDE 110 mmol/L (98-107); CREATININE 1.61 mg/dL (0.55-1.30); GLUCOSE 218 mg/dL (70-99); PHOSPHORUS 3.5 mg/dL (2.7-4.5); POTASSIUM 3.5 mmol/L (3.5-5.1); SODIUM SERUM 143 mmol/L (136-145); TOTAL BILIRUBIN 0.5 mg/dL (0.0-1.0); UREA NITROGEN, BLOOD 56 mg/dL (8-21)
[2019-09-21 07:33] LABS: ERYTHROCYTE SEDIMENTATION RATE 19 MM/HR (0-20)
[2019-09-21] MEDS: PANTOPRAZOLE SODIUM 40 MG/VIAL (PROTONIX) IVP SCH ×2 (08:37→21:32)
[2019-09-21] MEDS: DILTIAZEM HCL 120 MG CAP.SR.24H PO SCH ×2 (08:38→21:00)
[2019-09-21] MEDS: NOREPINEPHRINE BITARTRATE 4 MG in D5W 250 ML IV PRN ×2 (08:39→17:24)
[2019-09-21] MEDS: cefTRIAXone 1 GM in D5W 50 ML IV SCH (14:16)
[2019-09-21] MEDS: NYSTATIN 15 GM TOPICAL POWDER TP SCH ×2 (14:16→21:40)
[2019-09-22] VITALS (29 sets, daily range): BP systolic 89–120
[2019-09-22] MEDS: METOCLOPRAMIDE HCL 10 MG/2 ML VIAL IVP SCH ×3 (06:31→21:50)
[2019-09-22] MEDS: IPRATROPIUM BROM 0.5 MG/2.5 ML VIAL.NEB (ATROVENT) INH SCH ×5 (07:28→23:00)
[2019-09-22] MEDS: ALBUTEROL SULFATE 0.083% 2.5 MG/3 ML VIAL.NEB INH SCH ×5 (07:28→23:00)
[2019-09-22] MEDS: DILTIAZEM HCL 120 MG CAP.SR.24H PO SCH ×2 (09:20→21:00)
[2019-09-22] MEDS: PANTOPRAZOLE SODIUM 40 MG/VIAL (PROTONIX) IVP SCH ×2 (09:21→21:50)
[2019-09-22] MEDS: NOREPINEPHRINE BITARTRATE 4 MG in D5W 250 ML IV PRN (09:22)
[2019-09-22] MEDS: NYSTATIN 15 GM TOPICAL POWDER TP SCH ×2 (09:23→21:50)
[2019-09-22 09:32] LABS: ANION GAP 3 (5-15); CHLORIDE 114 mmol/L (98-107); CREATININE 1.32 mg/dL (0.55-1.30); GLUCOSE 276 mg/dL (70-99); POTASSIUM 3.8 mmol/L (3.5-5.1); SODIUM SERUM 147 mmol/L (136-145); UREA NITROGEN, BLOOD 42 mg/dL (8-21)
[2019-09-22 09:47] LABS: CALCIUM 6.9 mg/dL (8.4-11.0)
[2019-09-22] MEDS: cefTRIAXone 1 GM in D5W 50 ML IV SCH (14:56)
[2019-09-22] MEDS ORDERED: HYDROCORTISONE SOD SUCC 100 MG/2 ML VIAL IVP ONE (17:00)
[2019-09-22] MEDS ORDERED: ALBUMIN HUMAN 5% 500 ML IV ONE (17:00)
[2019-09-22] MEDS: HYDROCORTISONE SOD SUCC 100 MG/2 ML VIAL IVP SCH (22:12)
[2019-09-23] VITALS (24 sets, daily range): BP systolic 91–135
[2019-09-23] MEDS: ALBUTEROL SULFATE 0.083% 2.5 MG/3 ML VIAL.NEB INH SCH ×6 (03:00→23:00)
[2019-09-23] MEDS: IPRATROPIUM BROM 0.5 MG/2.5 ML VIAL.NEB (ATROVENT) INH SCH ×6 (03:00→23:00)
[2019-09-23 05:29] LABS: MONOCYTES # (AUTO) 0.2 K/uL (0.0-1.0); RED CELL DISTRIBUTION WIDTH 29.1 % (9.0-15.0)
[2019-09-23] MEDS: NOREPINEPHRINE BITARTRATE 4 MG in D5W 250 ML IV PRN (05:33)
[2019-09-23 05:35] LABS: BASOPHILS % (AUTO) 0.1 % (0.0-2.0); HEMATOCRIT 24.5 % (36-48); HEMOGLOBIN 7.2 g/dL (12.0-16.0); LYMPHOCYTES # (AUTO) 0.3 K/uL (1.0-5.5); LYMPHOCYTES % (AUTO) 3.3 % (20.5-51.5); MEAN CORPUSCULAR HEMOGLOBIN 23 pg (27-31); MEAN CORPUSCULAR HGB CONC 30 % (32-36); MEAN CORPUSCULAR VOLUME 79 fL (79.0-98.0); MONOCYTES % (AUTO) 2.7 % (1.7-9.3); NEUTROPHILS # (AUTO) 7.3 K/uL (1.8-7.7); NEUTROPHILS % (AUTO) 93.9 % (40.0-70.0); PLATELET COUNT (AUTO) 82 K/uL (130-430); RED BLOOD CELL COUNT(AUTO) 3.11 MIL/uL (4.2-6.2); WHITE BLOOD COUNT (AUTO) 7.7 K/uL (4.8-10.8)
[2019-09-23 05:41] LABS: ANION GAP 4 (5-15); CHLORIDE 112 mmol/L (98-107); CREATININE 1.21 mg/dL (0.55-1.30); GLUCOSE 357 mg/dL (70-99); POTASSIUM 4.1 mmol/L (3.5-5.1); SODIUM SERUM 142 mmol/L (136-145); UREA NITROGEN, BLOOD 43 mg/dL (8-21)
[2019-09-23 05:43] LABS: CALCIUM 6.9 mg/dL (8.4-11.0)
[2019-09-23] MEDS: METOCLOPRAMIDE HCL 10 MG/2 ML VIAL IVP SCH ×3 (05:47→21:31)
[2019-09-23] MEDS: HYDROCORTISONE SOD SUCC 100 MG/2 ML VIAL IVP SCH ×3 (05:47→21:31)
[2019-09-23] MEDS ORDERED: CALCIUM CHLORIDE 1 GM in NS 100 ML IV ONE (07:45)
[2019-09-23] MEDS: DILTIAZEM HCL 120 MG CAP.SR.24H PO SCH ×2 (09:00→21:33)
[2019-09-23] MEDS: PANTOPRAZOLE SODIUM 40 MG/VIAL (PROTONIX) IVP SCH ×2 (09:44→21:31)
[2019-09-23] MEDS: NYSTATIN 15 GM TOPICAL POWDER TP SCH ×2 (09:45→21:33)
[2019-09-23] MEDS ORDERED: *HEPARIN PER PHARMACY XX ONE (10:00)
[2019-09-23 10:43] LABS: INR 1.1 (0.8-1.2); PROTHROMBIN TIME 10.7 SECS (9.5-12.5)
[2019-09-23] MEDS ORDERED: HEPARIN SODIUM,PORCINE 5000 UNITS/ML VIAL IVP ONE (11:15)
[2019-09-23] MEDS ORDERED: HEPARIN SODIUM,PORCINE 3000 UNITS/0.6 ML BOLUS IVP PRN (11:15)
[2019-09-23] MEDS ORDERED: HEPARIN SODIUM,PORCINE 2000 UNITS/0.4 ML BOLUS IVP PRN (11:15)
[2019-09-23 13:22] LABS: HEMATOCRIT 25.3 % (36-48); HEMOGLOBIN 7.4 g/dL (12.0-16.0); MEAN CORPUSCULAR HEMOGLOBIN 23 pg (27-31); MEAN CORPUSCULAR HGB CONC 29 % (32-36); MEAN CORPUSCULAR VOLUME 79 fL (79.0-98.0); RED CELL DISTRIBUTION WIDTH 29.3 % (9.0-15.0); WHITE BLOOD COUNT (AUTO) 7.8 K/uL (4.8-10.8)
[2019-09-23] MEDS: HEPARIN 25,000 UNITS in 250 ML PREMIX IV PRN (13:22)
[2019-09-23 14:03] LABS: PLATELET COUNT (AUTO) 94 K/uL (130-430)
[2019-09-23] MEDS: cefTRIAXone 1 GM in D5W 50 ML IV SCH (15:40)
[2019-09-24] VITALS (21 sets, daily range): BP systolic 111–156
[2019-09-24] MEDS: IPRATROPIUM BROM 0.5 MG/2.5 ML VIAL.NEB (ATROVENT) INH SCH ×5 (03:00→20:11)
[2019-09-24] MEDS: ALBUTEROL SULFATE 0.083% 2.5 MG/3 ML VIAL.NEB INH SCH ×5 (03:00→20:11)
[2019-09-24] MEDS: METOCLOPRAMIDE HCL 10 MG/2 ML VIAL IVP SCH ×3 (05:47→22:09)
[2019-09-24] MEDS: HYDROCORTISONE SOD SUCC 100 MG/2 ML VIAL IVP SCH ×2 (05:47→15:14)
[2019-09-24 08:19] LABS: ANION GAP 10 (5-15); CALCIUM 7.8 mg/dL (8.4-11.0); CHLORIDE 114 mmol/L (98-107); POTASSIUM 3.7 mmol/L (3.5-5.1); SODIUM SERUM 150 mmol/L (136-145); UREA NITROGEN, BLOOD 53 mg/dL (8-21)
[2019-09-24 08:24] LABS: GLUCOSE 459 mg/dL (70-99)
[2019-09-24] MEDS: PANTOPRAZOLE SODIUM 40 MG/VIAL (PROTONIX) IVP SCH ×2 (09:01→22:07)
[2019-09-24] MEDS: DILTIAZEM HCL 120 MG CAP.SR.24H PO SCH (09:02)
[2019-09-24] MEDS: NYSTATIN 15 GM TOPICAL POWDER TP SCH ×2 (09:03→22:14)
[2019-09-24] MEDS ORDERED: D5W 1,000 ML IV PRN (10:22)
[2019-09-24] MEDS ORDERED: INSULIN REGULAR, HUMAN 100 UNITS/ML, 10 ML VIAL SUBCUT ONE (10:30)
[2019-09-24] MEDS ORDERED: DEXTROSE 50% JECT 50 ML DISP.SYRIN IVP PRN (10:30)
[2019-09-24] MEDS ORDERED: GLUCOSE 15 GM GEL (in 37.5 GM TUBE) PO PRN (10:30)
[2019-09-24] MEDS ORDERED: POTASSIUM CHLORIDE 20 MEQ/PKT PACKET PO PRN (10:30)
[2019-09-24] MEDS: HEPARIN 25,000 UNITS in 250 ML PREMIX IV PRN (11:11)
[2019-09-24] MEDS: INSULIN REGULAR, HUMAN 100 UNITS/ML, 10 ML VIAL (humuLIN R) SUBCUT PRN ×3 (11:54→23:46)
[2019-09-24] MEDS: cefTRIAXone 1 GM in D5W 50 ML IV SCH (15:12)
[2019-09-24] MEDS ORDERED: DILTIAZEM HCL 90 MG TABLET GT SCH (22:00)
[2019-09-24] MEDS: DILTIAZEM HCL 60 MG TABLET GT SCH (22:09)
[2019-09-25] MEDS: HYDROCORTISONE SOD SUCC 100 MG/2 ML VIAL IVP SCH ×2 (02:11→13:59)
[2019-09-25 05:15] VITALS: BP_SYST 109
[2019-09-25] MEDS: DILTIAZEM HCL 60 MG TABLET GT SCH ×3 (05:16→21:10)
[2019-09-25] MEDS: METOCLOPRAMIDE HCL 10 MG/2 ML VIAL IVP SCH ×3 (05:17→21:10)
[2019-09-25] MEDS: INSULIN REGULAR, HUMAN 100 UNITS/ML, 10 ML VIAL (humuLIN R) SUBCUT PRN ×3 (05:19→17:13)
[2019-09-25 07:03] LABS: BASOPHILS % (AUTO) 0.2 % (0.0-2.0); EOSINOPHILS % (AUTO) 0.1 % (0.0-4.0); HEMATOCRIT 26.9 % (36-48); HEMOGLOBIN 7.8 g/dL (12.0-16.0); LYMPHOCYTES # (AUTO) 0.2 K/uL (1.0-5.5); MEAN CORPUSCULAR HEMOGLOBIN 24 pg (27-31); MEAN CORPUSCULAR HGB CONC 29 % (32-36); MONOCYTES # (AUTO) 0.3 K/uL (0.0-1.0); MONOCYTES % (AUTO) 3.6 % (1.7-9.3); NEUTROPHILS # (AUTO) 8.8 K/uL (1.8-7.7); NEUTROPHILS % (AUTO) 94.1 % (40.0-70.0); PLATELET COUNT (AUTO) 153 K/uL (130-430); RED BLOOD CELL COUNT(AUTO) 3.29 MIL/uL (4.2-6.2); RED CELL DISTRIBUTION WIDTH 32.3 % (9.0-15.0); WHITE BLOOD COUNT (AUTO) 9.4 K/uL (4.8-10.8)
[2019-09-25 07:19] LABS: MEAN CORPUSCULAR VOLUME 82 fL (79.0-98.0)
[2019-09-25 07:46] LABS: ALANINE AMINOTRANSFERASE 29 U/L (12-78); ALBUMIN 1.8 g/dL (3.4-4.8); ANION GAP 5 (5-15); ASPARTATE AMINOTRANSFERASE 33 U/L (10-37); CALCIUM 7.8 mg/dL (8.4-11.0); CHLORIDE 119 mmol/L (98-107); CREATININE 1.53 mg/dL (0.55-1.30); GLUCOSE 292 mg/dL (70-99); POTASSIUM 4.3 mmol/L (3.5-5.1); SODIUM SERUM 155 mmol/L (136-145); TOTAL BILIRUBIN 0.5 mg/dL (0.0-1.0); UREA NITROGEN, BLOOD 74 mg/dL (8-21)
[2019-09-25 07:59] VITALS: BP_SYST 135
[2019-09-25] MEDS: IPRATROPIUM BROM 0.5 MG/2.5 ML VIAL.NEB (ATROVENT) INH SCH ×5 (09:09→23:00)
[2019-09-25] MEDS: ALBUTEROL SULFATE 0.083% 2.5 MG/3 ML VIAL.NEB INH SCH ×5 (09:09→23:00)
[2019-09-25] MEDS: NYSTATIN 15 GM TOPICAL POWDER TP SCH ×2 (09:17→21:11)
[2019-09-25] MEDS: PANTOPRAZOLE SODIUM 40 MG/VIAL (PROTONIX) IVP SCH ×2 (09:18→21:09)
[2019-09-25 12:45] VITALS: BP_SYST 130
[2019-09-25] MEDS: HEPARIN 25,000 UNITS in 250 ML PREMIX IV PRN ×2 (14:42→19:02)
[2019-09-25] MEDS: cefTRIAXone 1 GM in D5W 50 ML IV SCH (14:48)
[2019-09-25] MEDS ORDERED: BALSAM PERU/CASTOR OIL 60 GM OINT...G. TP ONE (15:30)
[2019-09-25 16:16] VITALS: BP_SYST 111
[2019-09-26] MEDS: INSULIN REGULAR, HUMAN 100 UNITS/ML, 10 ML VIAL (humuLIN R) SUBCUT PRN ×5 (00:02→23:49)
[2019-09-26 00:30] VITALS: BP_SYST 135
[2019-09-26] MEDS: HYDROCORTISONE SOD SUCC 100 MG/2 ML VIAL IVP SCH ×2 (01:54→13:35)
[2019-09-26] MEDS: IPRATROPIUM BROM 0.5 MG/2.5 ML VIAL.NEB (ATROVENT) INH SCH ×6 (03:00→23:00)
[2019-09-26] MEDS: ALBUTEROL SULFATE 0.083% 2.5 MG/3 ML VIAL.NEB INH SCH ×6 (03:00→23:00)
[2019-09-26] MEDS: HEPARIN 25,000 UNITS in 250 ML PREMIX IV PRN (04:38)
[2019-09-26] MEDS: METOCLOPRAMIDE HCL 10 MG/2 ML VIAL IVP SCH ×3 (05:28→22:58)
[2019-09-26] MEDS: DILTIAZEM HCL 60 MG TABLET GT SCH ×3 (05:29→22:00)
[2019-09-26 06:04] LABS: BASOPHILS % (AUTO) 0.1 % (0.0-2.0); EOSINOPHILS % (AUTO) 0.3 % (0.0-4.0); HEMATOCRIT 26.6 % (36-48); HEMOGLOBIN 7.7 g/dL (12.0-16.0); LYMPHOCYTES # (AUTO) 0.2 K/uL (1.0-5.5); LYMPHOCYTES % (AUTO) 2.4 % (20.5-51.5); MEAN CORPUSCULAR HEMOGLOBIN 24 pg (27-31); MEAN CORPUSCULAR HGB CONC 29 % (32-36); MEAN CORPUSCULAR VOLUME 82 fL (79.0-98.0); MONOCYTES # (AUTO) 0.3 K/uL (0.0-1.0); MONOCYTES % (AUTO) 3.6 % (1.7-9.3); NEUTROPHILS # (AUTO) 7.7 K/uL (1.8-7.7); NEUTROPHILS % (AUTO) 93.6 % (40.0-70.0); PLATELET COUNT (AUTO) 176 K/uL (130-430); RED BLOOD CELL COUNT(AUTO) 3.25 MIL/uL (4.2-6.2); WHITE BLOOD COUNT (AUTO) 8.2 K/uL (4.8-10.8)
[2019-09-26 06:24] LABS: ANION GAP 5 (5-15); CALCIUM 7.8 mg/dL (8.4-11.0); CREATININE 1.47 mg/dL (0.55-1.30); GLUCOSE 253 mg/dL (70-99); POTASSIUM 4.2 mmol/L (3.5-5.1); SODIUM SERUM 155 mmol/L (136-145); UREA NITROGEN, BLOOD 79 mg/dL (8-21)
[2019-09-26 06:47] LABS: RED CELL DISTRIBUTION WIDTH 33.9 % (9.0-15.0)
[2019-09-26 07:31] LABS: CHLORIDE 120 mmol/L (98-107)
[2019-09-26 08:00] VITALS: BP_SYST 145
[2019-09-26] MEDS: PANTOPRAZOLE SODIUM 40 MG/VIAL (PROTONIX) IVP SCH ×2 (09:52→22:54)
[2019-09-26] MEDS: NYSTATIN 15 GM TOPICAL POWDER TP SCH ×2 (09:53→22:59)
[2019-09-26] MEDS: BALSAM PERU/CASTOR OIL 60 GM OINT...G. TP SCH (09:53)
[2019-09-26 12:37] VITALS: BP_SYST 106
[2019-09-26] MEDS ORDERED: APIXABAN 2.5 MG TABLET PO ONE (13:15)
[2019-09-26] MEDS ORDERED: APIXABAN 2.5 MG TABLET GT ONE (13:30)
[2019-09-26] MEDS: cefTRIAXone 1 GM in D5W 50 ML IV SCH (15:13)
[2019-09-26 16:48] VITALS: BP_SYST 120
[2019-09-26] MEDS: D5W 1,000 ML IV SCH (17:25)
[2019-09-26 20:00] VITALS: BP_SYST 103
[2019-09-26] MEDS: APIXABAN 2.5 MG TABLET GT SCH (22:57)
[2019-09-27 01:22] VITALS: BP_SYST 97
[2019-09-27] MEDS: ALBUTEROL SULFATE 0.083% 2.5 MG/3 ML VIAL.NEB INH SCH ×6 (03:00→23:00)
[2019-09-27] MEDS: IPRATROPIUM BROM 0.5 MG/2.5 ML VIAL.NEB (ATROVENT) INH SCH ×6 (03:00→23:00)
[2019-09-27] MEDS: HYDROCORTISONE SOD SUCC 100 MG/2 ML VIAL IVP SCH ×2 (03:12→14:33)
[2019-09-27] MEDS: D5W 1,000 ML IV SCH (03:17)
[2019-09-27] MEDS: METOCLOPRAMIDE HCL 10 MG/2 ML VIAL IVP SCH ×3 (05:28→21:32)
[2019-09-27] MEDS: DILTIAZEM HCL 60 MG TABLET GT SCH ×3 (05:28→21:30)
[2019-09-27] MEDS: INSULIN REGULAR, HUMAN 100 UNITS/ML, 10 ML VIAL (humuLIN R) SUBCUT PRN ×4 (05:48→23:41)
[2019-09-27 07:23] LABS: BASOPHILS % (AUTO) 0.2 % (0.0-2.0); EOSINOPHILS # (AUTO) 0.1 K/uL (0.0-0.4); EOSINOPHILS % (AUTO) 1.4 % (0.0-4.0); HEMATOCRIT 26.2 % (36-48); HEMOGLOBIN 7.4 g/dL (12.0-16.0); LYMPHOCYTES # (AUTO) 0.2 K/uL (1.0-5.5); LYMPHOCYTES % (AUTO) 2.4 % (20.5-51.5); MEAN CORPUSCULAR HEMOGLOBIN 23 pg (27-31); MEAN CORPUSCULAR HGB CONC 28 % (32-36); MEAN CORPUSCULAR VOLUME 83 fL (79.0-98.0); MONOCYTES # (AUTO) 0.2 K/uL (0.0-1.0); MONOCYTES % (AUTO) 3.6 % (1.7-9.3); NEUTROPHILS # (AUTO) 6.4 K/uL (1.8-7.7); NEUTROPHILS % (AUTO) 92.4 % (40.0-70.0); PLATELET COUNT (AUTO) 173 K/uL (130-430); RED BLOOD CELL COUNT(AUTO) 3.17 MIL/uL (4.2-6.2); RED CELL DISTRIBUTION WIDTH 34.6 % (9.0-15.0); WHITE BLOOD COUNT (AUTO) 6.9 K/uL (4.8-10.8)
[2019-09-27 07:37] LABS: ANION GAP 2 (5-15); CALCIUM 7.4 mg/dL (8.4-11.0); CHLORIDE 116 mmol/L (98-107); CREATININE 1.43 mg/dL (0.55-1.30); GLUCOSE 271 mg/dL (70-99); PHOSPHORUS 4.9 mg/dL (2.7-4.5); POTASSIUM 4.4 mmol/L (3.5-5.1); SODIUM SERUM 150 mmol/L (136-145); UREA NITROGEN, BLOOD 81 mg/dL (8-21)
[2019-09-27 08:00] VITALS: BP_SYST 122
[2019-09-27] MEDS: PANTOPRAZOLE SODIUM 40 MG/VIAL (PROTONIX) IVP SCH ×2 (08:14→21:31)
[2019-09-27] MEDS: APIXABAN 2.5 MG TABLET GT SCH ×2 (08:15→21:31)
[2019-09-27] MEDS: NYSTATIN 15 GM TOPICAL POWDER TP SCH ×2 (08:16→21:30)
[2019-09-27] MEDS: BALSAM PERU/CASTOR OIL 60 GM OINT...G. TP SCH (08:19)
[2019-09-27 08:36] LABS: ERYTHROCYTE SEDIMENTATION RATE 33 MM/HR (0-20)
[2019-09-27] MEDS ORDERED: MAGNESIUM SULFATE 50 ML IV ONE (11:00)
[2019-09-27 11:20] VITALS: BP_SYST 122
[2019-09-27 12:43] VITALS: BP_SYST 108
[2019-09-27] MEDS: cefTRIAXone 1 GM in D5W 50 ML IV SCH (14:33)
[2019-09-27 16:29] VITALS: BP_SYST 104
[2019-09-27 20:00] VITALS: BP_SYST 135
[2019-09-28 00:53] VITALS: BP_SYST 137
[2019-09-28] MEDS: HYDROCORTISONE SOD SUCC 100 MG/2 ML VIAL IVP SCH (02:38)
[2019-09-28] MEDS: ALBUTEROL SULFATE 0.083% 2.5 MG/3 ML VIAL.NEB INH SCH ×4 (03:00→16:40)
[2019-09-28] MEDS: IPRATROPIUM BROM 0.5 MG/2.5 ML VIAL.NEB (ATROVENT) INH SCH ×4 (03:00→16:40)
[2019-09-28] MEDS: DILTIAZEM HCL 60 MG TABLET GT SCH ×2 (05:16→13:43)
[2019-09-28] MEDS: METOCLOPRAMIDE HCL 10 MG/2 ML VIAL IVP SCH ×2 (05:16→13:43)
[2019-09-28] MEDS: INSULIN REGULAR, HUMAN 100 UNITS/ML, 10 ML VIAL (humuLIN R) SUBCUT PRN ×2 (05:19→12:17)
[2019-09-28 06:24] LABS: BASOPHILS % (AUTO) 0.2 % (0.0-2.0); EOSINOPHILS # (AUTO) 0.1 K/uL (0.0-0.4); EOSINOPHILS % (AUTO) 1.5 % (0.0-4.0); HEMATOCRIT 25.1 % (36-48); HEMOGLOBIN 7.2 g/dL (12.0-16.0); LYMPHOCYTES # (AUTO) 0.2 K/uL (1.0-5.5); LYMPHOCYTES % (AUTO) 2.8 % (20.5-51.5); MEAN CORPUSCULAR HEMOGLOBIN 24 pg (27-31); MEAN CORPUSCULAR HGB CONC 29 % (32-36); MEAN CORPUSCULAR VOLUME 82 fL (79.0-98.0); MONOCYTES # (AUTO) 0.2 K/uL (0.0-1.0); MONOCYTES % (AUTO) 3.1 % (1.7-9.3); NEUTROPHILS % (AUTO) 92.4 % (40.0-70.0); PLATELET COUNT (AUTO) 176 K/uL (130-430); RED BLOOD CELL COUNT(AUTO) 3.07 MIL/uL (4.2-6.2); RED CELL DISTRIBUTION WIDTH 33.8 % (9.0-15.0); WHITE BLOOD COUNT (AUTO) 6.5 K/uL (4.8-10.8)
[2019-09-28 06:29] LABS: ALANINE AMINOTRANSFERASE 27 U/L (12-78); ALBUMIN 1.8 g/dL (3.4-4.8); ANION GAP 4 (5-15); ASPARTATE AMINOTRANSFERASE 21 U/L (10-37); C-REACTIVE PROTEIN QUANT 0.9 mg/dL (0-0.5); CALCIUM 7.2 mg/dL (8.4-11.0); CHLORIDE 117 mmol/L (98-107); CREATININE 1.26 mg/dL (0.55-1.30); GLUCOSE 221 mg/dL (70-99); PHOSPHORUS 4.4 mg/dL (2.7-4.5); POTASSIUM 4.2 mmol/L (3.5-5.1); SODIUM SERUM 152 mmol/L (136-145); TOTAL BILIRUBIN 0.6 mg/dL (0.0-1.0); UREA NITROGEN, BLOOD 71 mg/dL (8-21)
[2019-09-28 07:28] LABS: ERYTHROCYTE SEDIMENTATION RATE 38 MM/HR (0-20)
[2019-09-28 08:00] VITALS: BP_SYST 145
[2019-09-28] MEDS: APIXABAN 2.5 MG TABLET GT SCH (09:15)
[2019-09-28] MEDS: PANTOPRAZOLE SODIUM 40 MG/VIAL (PROTONIX) IVP SCH (09:18)
[2019-09-28] MEDS: BALSAM PERU/CASTOR OIL 60 GM OINT...G. TP SCH (09:19)
[2019-09-28] MEDS: NYSTATIN 15 GM TOPICAL POWDER TP SCH (09:21)
[2019-09-28 12:00] VITALS: BP_SYST 142
[2019-09-28] MEDS: IPRATROPIUM BROM 0.5 MG/2.5 ML VIAL.NEB (ATROVENT) INH PRN (12:42)
[2019-09-28] MEDS: ALBUTEROL SULFATE 0.083% 2.5 MG/3 ML VIAL.NEB INH PRN (12:42)
[2019-09-28 16:33] VITALS: BP_SYST 142
== END 2019-09-28 17:00 | DRG 871 ==
LOC: SED 23:42 → EEVIPCON 09-08 02:05 → STU 09-08 02:05 → SIC 09-18 13:57 → STU 09-24 16:14
PROVIDERS: ADMIT Internal Medicine Hospice and Palliative Medicine; ATTEND Internal Medicine Hospice and Palliative Medicine
PROC: 30233N1 Transfusion of Nonautologous Red Blood Cells into Peripheral Vein, Percutaneous Approach (ICD-10-PCS; 2019-09-08)
PROC: 0DH63UZ Insertion of Feeding Device into Stomach, Percutaneous Approach (ICD-10-PCS; principal; 2019-09-17 09:00)
PROC: 02HV33Z Insertion of Infusion Device into Superior Vena Cava, Percutaneous Approach (ICD-10-PCS; 2019-09-19)
PROC: B548ZZA Ultrasonography of Superior Vena Cava, Guidance (ICD-10-PCS; 2019-09-19)
PROC: 02HV33Z Insertion of Infusion Device into Superior Vena Cava, Percutaneous Approach (ICD-10-PCS; 2019-09-23)
PROC: B548ZZA Ultrasonography of Superior Vena Cava, Guidance (ICD-10-PCS; 2019-09-23)
DX: A41.9 Sepsis, unspecified organism (principal); E43 Unspecified severe protein-calorie malnutrition; G93.41 Metabolic encephalopathy; J69.0 Pneumonitis due to inhalation of food and vomit; R65.21 Severe sepsis with septic shock; I21.A1 Myocardial infarction type 2; J96.01 Acute respiratory failure with hypoxia; N17.0 Acute kidney failure with tubular necrosis; N39.0 Urinary tract infection, site not specified; E87.1 Hypo-osmolality and hyponatremia; I48.20 Chronic atrial fibrillation, unspecified; E87.0 Hyperosmolality and hypernatremia; I82.A11 Acute embolism and thrombosis of right axillary vein; D50.9 Iron deficiency anemia, unspecified; B96.1 Klebsiella pneumoniae [K. pneumoniae] as the cause of diseases classified elsewhere; E11.65 Type 2 diabetes mellitus with hyperglycemia; E89.0 Postprocedural hypothyroidism; F03.90 Unspecified dementia, unspecified severity, without behavioral disturbance, psychotic disturbance, mood disturbance, and anxiety; I11.0 Hypertensive heart disease with heart failure; I25.10 Atherosclerotic heart disease of native coronary artery without angina pectoris; I34.0 Nonrheumatic mitral (valve) insufficiency; I50.9 Heart failure, unspecified; R13.10 Dysphagia, unspecified; W01.0XXA Fall on same level from slipping, tripping and stumbling without subsequent striking against object, initial encounter; K57.30 Diverticulosis of large intestine without perforation or abscess without bleeding; K80.80 Other cholelithiasis without obstruction; K43.9 Ventral hernia without obstruction or gangrene; D35.00 Benign neoplasm of unspecified adrenal gland; D69.6 Thrombocytopenia, unspecified; E83.51 Hypocalcemia; E88.09 Other disorders of plasma-protein metabolism, not elsewhere classified; E83.41 Hypermagnesemia; Y93.89 Activity, other specified; Y92.89 Other specified places as the place of occurrence of the external cause; Y99.8 Other external cause status; Z79.01 Long term (current) use of anticoagulants; Z82.3 Family history of stroke; Z85.038 Personal history of other malignant neoplasm of large intestine; Z86.73 Personal history of transient ischemic attack (TIA), and cerebral infarction without residual deficits; Z87.891 Personal history of nicotine dependence; Z88.6 Allergy status to analgesic agent; Z79.899 Other long term (current) drug therapy; Z68.35 Body mass index [BMI] 35.0-35.9, adult; Z03.818 Encounter for observation for suspected exposure to other biological agents ruled out
CPT/HCPCS: 36415; 36600; 43246; 70450-TC; 71045; 71275; 72131; 74018; 80048; 80053; 80061; 81000-TC; 82140-TC; 82803-TC; 82962; 83605; 83735-TC; 83880; 84100-TC; 84439; 84443-TC; 84480; 84484; 85025; 85610-TC; 85651-TC; 85730-TC; 86140; 86870; 86886; 86900; 86901; 86920; 87081; 87086; 87186-TC; 92610-GN; 93005; 93306; 93970; 94640; 94760; 97110-GP; 97112-GP; 97530-GP; 99285; A6209; C1751; C9113; G0378; J0696; J1160; J1200; J1644; J1720; J1815; J1940; J2250; J2405; J2543; J2765; J3010; J3490; J7040; J7042; J7050; J7060; J7613; P9021; P9041; Q9964; Q9967